=== PATIENT | female | born 1960 | race Caucasian/White ===

== ENCOUNTER 2023-08-01 09:44 | Outpatient (CLI) | payer BC | END 2023-08-01 09:45 | disposition home or self-care (01) | LOC: CSHRAD 09:44 | PROVIDERS: ATTEND Family Medicine | DX: M54.2 Cervicalgia (principal); M25.512 Pain in left shoulder; M47.812 Spondylosis without myelopathy or radiculopathy, cervical region; M19.012 Primary osteoarthritis, left shoulder | CPT/HCPCS: 72040 ==

== ENCOUNTER 2025-05-28 13:06 | Outpatient (CLI) | payer OTHER | END 2025-05-28 13:07 | disposition home or self-care (01) | LOC: CSHMAMMO 13:06 | PROVIDERS: ATTEND Family Medicine | DX: Z12.31 Encounter for screening mammogram for malignant neoplasm of breast (principal); R10.9 Unspecified abdominal pain | CPT/HCPCS: 76770; 77063; 77067 ==